=== PATIENT | female | born 1980 | race American Indian/Alaskan Native ===

== ENCOUNTER 2018-05-05 11:53 | Emergency (ER) | payer SELFPAY ==
[2018-05-05] MEDS ORDERED: CARAFATE PO ONE (12:20)
[2018-05-05] MEDS ORDERED: NACL 0.9% 1000 ML 1,000 ML IV ONE (12:20)
[2018-05-05] MEDS ORDERED: CARAFATE ONE (12:20)
[2018-05-05] MEDS ORDERED: PEPCID IV ONE ×2 (12:20)
--- NOTE | 2018-05-05 12:22 | Emergency Department Report ---
ED Chest Pain HPI - General Chief Complaint: Chest Pain Stated Complaint: CHESTPAIN Time Seen by Provider: 05/05/18 12:13 Source: patient, EMS (ems notes not available at time of chart dictation), RN notes reviewed, old records reviewed Mode of arrival: Ambulatory Limitations: No Limitations - History of Present Illness Initial Comments: This is a 37-year-old female who is not known to this provider previously. The patient denies past medical history. The patient reports that she is not , denies oral contraceptive use, and denies DVT, pulmonary embolus risk factors. The patient is reportedly brought to the hospital today by emergency medical services for chest pain. The patient reports the chest pain is central, and radiates up to her throat. She describes it as a sensation of heartburn. She denies vomiting, diaphoresis, denies shortness of breath. She reports no recent aspirin use or cocaine use. The pain is intermittent, and does not have exacerbating or relieving factors that she is aware of. MD Complaint: chest pain -: Gradual, days(s) Onset: during exertion Pain Location: substernal Pain Radiation: other Quality: aching, other Consistency: intermittent Improves With: nothing Worsens With: nothing Aspirin use within the Past 7 Days: (0) No - Related Data On Oral Contraceptives: No Previous Rx's Medication Instructions Recorded Last Taken Type Aspirin [Aspirin BABY CHEW TAB] 81 mg PO QDAY #30 tab.chew 05/05/18 Unknown Rx Famotidine [Pepcid] 20 mg PO BID #30 tablet 05/05/18 Unknown Rx Heart Score - HEART Score History: Slightly suspicious EKG: Normal Age: < 45 Risk factors: No known risk factors Troponin: < normal limit HEART Score: 0 - Critical Actions Critical Actions: 0-3 pts:0.9-1.7%risk of adverse cardiac event.Candidate for discharge ED Review of Systems ROS: Stated complaint: CHESTPAIN Other details as noted in HPI Constitutional: denies: fever Eyes: denies: vision change ENT: denies: epistaxis Respiratory: denies: cough Cardiovascular: chest pain Gastrointestinal: denies: vomiting Musculoskeletal: denies: back pain Skin: denies: lesions Neurological: denies: weakness Psychiatric: anxiety ED Past Medical Hx - Medications Home Medications: Home Medications Medication Instructions Recorded Confirmed Last Taken Type Aspirin [Aspirin BABY CHEW TAB] 81 mg PO QDAY #30 tab.chew 05/05/18 Unknown Rx Famotidine [Pepcid] 20 mg PO BID #30 tablet 05/05/18 Unknown Rx ED Physical Exam - General General appearance: alert, in no apparent distress - Head Head exam: Present: atraumatic, normocephalic - Eye Eye exam: Present: normal appearance, EOMI. Absent: nystagmus - ENT ENT exam: Present: normal exam, normal orophraynx, mucous membranes moist, normal external ear exam - Neck Neck exam: Present: normal inspection, full ROM. Absent: tenderness, meningismus - Respiratory Respiratory exam: Present: normal lung sounds bilaterally. Absent: respiratory distress - Cardiovascular Cardiovascular Exam: Present: regular rate, normal rhythm, normal heart sounds. Absent: bradycardia, tachycardia, irregular rhythm, systolic murmur, diastolic murmur, rubs, gallop - GI/Abdominal GI/Abdominal exam: Present: soft. Absent: distended, tenderness, guarding, rebound, rigid, pulsatile mass - Extremities Exam Extremities exam: Present: normal inspection, full ROM, other (2+ pulses noted in the bilateral upper, lower extremities. Compartments soft. No long bony tenderness. The pelvis is stable.). Absent: pedal edema, joint swelling, calf tenderness - Back Exam Back exam: Present: normal inspection, full ROM. Absent: tenderness, CVA tenderness (R), paraspinal tenderness, vertebral tenderness - Neurological Exam Neurological exam: Present: alert, oriented X3, CN II-XII intact, normal gait, other (Extraocular movements intact. Tongue midline. No facial droop. Facial sensation intact to light touch in the V1, V2, V3 distribution bilaterally. 5 and 5 strength in 4 extremities.. Sensation is intact to light touch in 4 extremities.). Absent: motor sensory deficit - Psychiatric Psychiatric exam: Present: anxious - Skin Skin exam: Present: warm, dry, intact, normal color. Absent: rash ED Course Vital Signs 05/05/18 12:35 Temperature 98.2 F Pulse Rate 96 H Respiratory 18 Rate Blood Pressure 137/97 Blood Pressure 137/97 [Left] O2 Sat by Pulse 100 Oximetry ALYSE score - Alyse Score Age > 65: (0) No Aspirin use within the Past 7 Days: (0) No 3 or more CAD Risk Factors: (0) No 2 or more Angina events in past 24 hrs: (0) No Known CAD with more than 50% Stenosis: (0) No Elevated Cardiac Markers: (0) No ST Deviation Greater than 0.5mm: (0) No ALYSE Score: 0 ED Medical Decision Making - Lab Data Vital Signs 05/05/18 12:35 Temperature 98.2 F Pulse Rate 96 H Respiratory 18 Rate Blood Pressure 137/97 Blood Pressure 137/97 [Left] O2 Sat by Pulse 100 Oximetry - EKG Data -: EKG Interpreted by Pr - EKG Data 05/05/18 12:59 Sinus rhythm, 85 bpm, normal axis, QTC prolonged, motion artifact, not consistent with ST elevation myocardial infarction, otherwise, no significant ST abnormalities - Medical Decision Making Differential diagnosis, including not limited to: GERD, gastritis, hiatal hernia, pneumonia, acute coronary syndrome, pulmonary and was, anxiety Assessment and plan: 37-year-old female who endorses burning chest discomfort that radiates up to her throat, most likely GI related. The patient is afebrile with reassuring vital signs, and reports no pulmonary embolus or DVT risk factors. I recommended screening laboratory studies, x-ray of the chest to exclude potentially dangerous conditions, including acute coronary syndrome, pneumothorax and pulmonary embolus. The patient verbalizes understanding, and initially indicated that she was amenable to initiate a workup. The patient is alert and oriented 3, clinically sober, walks with a steady gait, and exhibits decision-making capacity. The patient is not intoxicated she is not impaired in my professional opinion, and she does exhibit decision- making capacity as she is able to explain things in her own words and a lucid and cogent fashion. This conversation was witnessed by nurse Posey Shortly thereafter, the patient signed out AGAINST MEDICAL ADVICE. The patient left before receiving her discharge paperwork. Please note that for the purposes of chart completion, I have had to document negative troponin in both the heart score, and ALYSE score, although laboratory studies were not drawn. please note that because of the way the medical record system is constructed, this chart cannot be completed or signed without the use values being input. Therefore, I have selected these are arbitrary designations in order to complete the chart. They are not indication of the patient's troponin level, as this level was not able to be drawn secondary to the patient's signing out AGAINST MEDICAL ADVICE. for the Purposes of cardiac risk stratification, both the documented ALYSE score, and heart score in this charts are not applicable, as the screening laboratory studies are not obtained. Critical care attestation.: If time is entered above; I have spent that time in minutes in the direct care of this critically ill patient, excluding procedure time. ED Disposition Clinical Impression: Chest pain Disposition: DC-07 LEFT AGAINST MED ADVICE Is pt being admited?: No Does the pt Need Aspirin: No Condition: Undetermined Instructions: Chest Pain (ED) Additional Instructions: As we discussed, you have left the hospital/emergency room AGAINST MEDICAL ADVICE. By leaving, you risked , disability, paralysis, permanent loss of quality of life. The ER is open 24 hours a day, 7 days a week. It never closes. Please return to the emergency room right away if and when you change your mind. If you decide not to return to the emergency room, please follow-up with the listed physician referrals as soon as possible. Avoid consumption of Motrin, ibuprofen, Naprosyn, Aleve, heavy, spicy foods. Prescriptions: Aspirin [Aspirin BABY CHEW TAB] 81 mg PO QDAY #30 tab.chew Famotidine [Pepcid] 20 mg PO BID #30 tablet Referrals: [facility] [Provider Group] - 3-5 Days [facility] [Provider Group] - 3-5 Days [facility] [Provider Group] - 3-5 Days
[2018-05-05 12:43] VITALS: BP 137/97
== END 2018-05-05 13:11 | disposition left against medical advice (07) ==
LOC: EDSEX → ED 11:53
DX: R07.89 Other chest pain (principal)
CPT/HCPCS: 93005; 93010; 96374

== ENCOUNTER 2019-01-22 14:56 | Emergency (ER) | payer SELFPAY ==
--- NOTE | 2019-01-22 15:11 | Event Note ---
ED Screening Note Date of service: 01/22/19 ED Screening Note: This initial assessment/diagnostic orders/clinical plan/treatment(s) is/are subject to change based on patients health status, clinical progression and re- assessment by fellow clinical providers in the ED. Further treatment and workup at subsequent clinical providers discretion. Patient/guardian urged not to elope from the ED as their condition may be serious if not clinically assessed and managed. Initial orders include: 38yo BF states that she has LBP, more severe on the R flank x 1 week. 2 days ago the pain began to increase with urination and defecation. She further states that she has been nauseous.
[2019-01-22 18:05] LABS: Bilirubin,Urine NEG (Negative); Blood,Urine LG (Negative); Color,Urine Yellow (Yellow); Mucus,Urine FEW /HPF; Protein,Urine <15 mg/dL mg/dL (Negative); Urobilinogen,Urine < 2.0 mg/dL (<2.0)
[2019-01-22 18:08] LABS: RBC,Urine > 182.0 /HPF (0.0-6.0)
[2019-01-22] MEDS ORDERED: SODIUM CHLORIDE 0.9% 1000 ML 2,000 ML IV ONE (18:24)
[2019-01-22] MEDS ORDERED: ONDANSETRON 4 MG/2 ML INJ IV ONE (18:24)
[2019-01-22] MEDS ORDERED: MORPHINE 4 MG/1 ML INJ IV ONE (18:24)
[2019-01-22] MEDS ORDERED: ACETAMINOPHEN 325 MG TAB PO ONE (18:25)
--- NOTE | 2019-01-22 18:26 | Emergency Department Report ---
ED General Adult HPI - General Chief complaint: Back Pain/Injury Stated complaint: BACK/L SIDE PAIN Time Seen by Provider: 01/22/19 18:07 Source: patient, RN notes reviewed, old records reviewed Mode of arrival: Ambulatory Limitations: No Limitations - History of Present Illness Initial comments: During the history and physical examination, I am social science manager and escorted by nurse Roseanne Fiore This is a 38-year-old female. Patient reportedly has a history of hypertension. The patient presents to the ER with a complaint of left flank pain, left side p ain, present for a few days, dysuria times one day, positive nausea, vomiting times one, nonbloody and nonbilious., no headache, no chest pain, no diarrhea. She denies vaginal discharge, indicates that she is sexually active with 1 male partner, denies dyspareunia, and indicates that she is not concerned about STI She also feels like her left /Hip is "more swollen than the other side." Symptoms going on for a few days, increases with palpation and decreases with rest. Location: back, abdomen Radiation: flank Severity scale (0 -10): 9 Quality: other Consistency: other Improves with: other Worsens with: other - Related Data Previous Rx's Medication Instructions Recorded Last Taken Type Aspirin [Aspirin BABY CHEW TAB] 81 mg PO QDAY #30 tab.chew 05/05/18 Unknown Rx Famotidine [Pepcid] 20 mg PO BID #30 tablet 05/05/18 Unknown Rx Acetaminophen [Non-Aspirin Extra 500 mg PO Q6HR PRN #30 tablet 01/22/19 Unknown Rx Strength] Ibuprofen [Motrin] 600 mg PO Q8H PRN #30 tablet 01/22/19 Unknown Rx Magnesium Oxide 400 mg PO QDAY #10 tablet 01/22/19 Unknown Rx Ondansetron [Zofran Odt] 4 mg PO Q8HR PRN #20 tab.rapdis 01/22/19 Unknown Rx Sulfamethoxazole/Trimethoprim 1 each PO BID #8 tablet 01/22/19 Unknown Rx [Bactrim DS TAB] Allergies Allergy/AdvReac Type Severity Reaction Status Date / Time latex Allergy Itching Verified 01/22/19 14:58 ED Review of Systems ROS: Stated complaint: BACK/L SIDE PAIN Other details as noted in HPI Constitutional: denies: fever Eyes: denies: eye discharge ENT: denies: congestion Respiratory: denies: wheezing Cardiovascular: denies: syncope Gastrointestinal: nausea, vomiting Genitourinary: dysuria Musculoskeletal: back pain, myalgia Skin: denies: lesions Neurological: denies: weakness Psychiatric: anxiety Hematological/Lymphatic: denies: easy bleeding ED Past Medical Hx - Past Medical History Previous Medical History?: Yes Hx Hypertension: Yes - Surgical History Past Surgical History?: Yes Additional Surgical History: C section. D and C - Social History Smoking Status: Current Every Day Smoker Substance Use Type: Marijuana - Medications Home Medications: Home Medications Medication Instructions Recorded Confirmed Last Taken Type Aspirin [Aspirin BABY CHEW TAB] 81 mg PO QDAY #30 tab.chew 05/05/18 Unknown Rx Famotidine [Pepcid] 20 mg PO BID #30 tablet 05/05/18 Unknown Rx Acetaminophen [Non-Aspirin Extra 500 mg PO Q6HR PRN #30 tablet 01/22/19 Unknown Rx Strength] Ibuprofen [Motrin] 600 mg PO Q8H PRN #30 tablet 01/22/19 Unknown Rx Magnesium Oxide 400 mg PO QDAY #10 tablet 01/22/19 Unknown Rx Ondansetron [Zofran Odt] 4 mg PO Q8HR PRN #20 tab.rapdis 01/22/19 Unknown Rx Sulfamethoxazole/Trimethoprim 1 each PO BID #8 tablet 01/22/19 Unknown Rx [Bactrim DS TAB] ED Physical Exam - General Limitations: No Limitations General appearance: alert, anxious - Head Head exam: Present: atraumatic, normocephalic - Eye Eye exam: Present: normal appearance, EOMI - ENT ENT exam: Present: normal exam, normal orophraynx, mucous membranes moist, normal external ear exam - Neck Neck exam: Present: normal inspection, full ROM. Absent: tenderness, meningismus - Respiratory Respiratory exam: Present: normal lung sounds bilaterally. Absent: respiratory distress - Cardiovascular Cardiovascular Exam: Present: normal rhythm, tachycardia, normal heart sounds. Absent: systolic murmur, diastolic murmur, rubs, gallop - GI/Abdominal GI/Abdominal exam: Present: soft, tenderness (there is left flank tenderness), normal bowel sounds. Absent: distended, guarding, rebound, rigid, pulsatile mass - Extremities Exam Extremities exam: Present: normal inspection, full ROM, other (2+ pulses noted in the bilateral upper, lower extremities. There is no long bone tenderness. Musculoskeletal compartments are soft. The pelvis is stable.). Absent: pedal edema, joint swelling, calf tenderness - Back Exam Back exam: Present: normal inspection, full ROM, CVA tenderness (L), paraspinal tenderness. Absent: tenderness, CVA tenderness (R) - Neurological Exam Neurological exam: Present: alert, oriented X3, other (there is no facial droop. The tongue is midline. Extraocular movements are intact bilaterally. Patient speaking in full complete sentences. Shoulder shrug is intact bilaterally. Hearing is grossly intact bilaterally. Visual acuity intact to finger counting and color perception at a close distance. 5/5 strength 4 extremities. Sensati on intact to light touch in 4 extremities.). Absent: motor sensory deficit - Psychiatric Psychiatric exam: Present: anxious - Skin Skin exam: Present: warm, dry, intact, normal color. Absent: rash ED Course Vital Signs 01/22/19 01/22/19 01/22/19 15:04 18:37 18:52 Temperature 97.9 F 98.6 F Pulse Rate 108 H 111 H Respiratory 20 16 20 Rate Blood Pressure 123/88 Blood Pressure 130/98 [Right] O2 Sat by Pulse 99 99 Oximetry 01/22/19 01/22/19 18:53 22:15 Temperature Pulse Rate 98 H Respiratory 20 18 Rate Blood Pressure Blood Pressure 134/100 [Right] O2 Sat by Pulse 100 Oximetry - Reevaluation(s) Reevaluation #1: 01/22/19 19:13 Differential diagnosis, including not limited to: Ovarian cyst, reproducible muscular back pain, upper urinary tract infection, kidney stone, colitis, diverticulitis Assessment and plan: 38-year-old female who is tachycardic, endorsing back pain, flank pain, dysuria 1 day. Somewhat tender. Appears quite anxious. We will treat her symptoms, obtain additional laboratory studies, obtain CT scan abdomen pelvis, and reassess. Discussed plan of care with patient who verbalizes understanding, and who is amenable to this plan of care. During the entire history and physical examination, I am chaperoned by nurse Rosaenne Fiore. Reevaluation #2: 01/22/19 23:21 Tachycardia resolved. Patient noted to be smiling and laughing and quite engaged with the ER staff members. She is making multiple requests to eat and leave. CT scan abdomen pelvis shows no acute surgical process. Left-sided ovarian cyst is suggested's, possibly hemorrhagic. Urinalysis is reviewed and appreciated. Patient will be treated empirically with Bactrim, and Tylenol, Motrin, as needed for pain. She can follow-up with her outpatient primary care doctor or regional vice president life sales. Potassium and magnesium were repleted in the emergency room. Patient suitable for discharge at this point time. There is no left lower quadrant abdominal tenderness, rebound or guarding. The patient appears to be quite comfortable at this time. Based off of this, history, physical, radiology studies, ovarian torsion is very unlikely. ED Medical Decision Making - Lab Data Result diagrams: 01/22/19 20:25 01/22/19 20:25 Vital Signs 01/22/19 01/22/19 01/22/19 15:04 18:37 18:52 Temperature 97.9 F 98.6 F Pulse Rate 108 H 111 H Respiratory 20 16 20 Rate Blood Pressure 123/88 Blood Pressure 130/98 [Right] O2 Sat by Pulse 99 99 Oximetry 01/22/19 18:53 Temperature Pulse Rate Respiratory 20 Rate Blood Pressure Blood Pressure [Right] O2 Sat by Pulse Oximetry Lab Results 01/22/19 Range/Units 17:48 Urine Color Yellow (Yellow) Urine Turbidity Clear (Clear) Urine pH 7.0 (5.0-7.0) Ur Specific [place] 1.006 (1.003-1.030) Urine Protein <15 mg/dl (Negative) mg/dL Urine Glucose (UA) Neg (Negative) mg/dL Urine Ketones Neg (Negative) mg/dL Urine Blood Lg (Negative) Urine Nitrite Neg (Negative) Urine Bilirubin Neg (Negative) Urine Urobilinogen < 2.0 (<2.0) mg/dL Ur Leukocyte Esterase Neg (Negative) Urine WBC (Auto) 34.0 H (0.0-6.0) /HPF Urine RBC (Auto) > 182.0 (0.0-6.0) /HPF U Epithel Cells (Auto) 4.0 (0-13.0) /HPF Urine Mucus Few /HPF - Radiology Data Radiology results: report reviewed, image reviewed Print Report Referring Physician: LAURA BELLA Patient Name: ADALID IRELAND Date of : 1980 Sex: Female Report Date: 2019-01-22 Report Status: Finalized Findings [facility] [address] [place] [address] Cat Scan Report Signed Patient: ADALID IRELAND MR#: [id number] : 1980 Acct:[id number] Age/Sex: 38 / F ADM Date: 01/22/19 Loc: ED Attending Dr: Ordering Physician: LAURA BELLA MD Date of Service: 01/22/19 Procedure(s): CT abdomen pelvis w con Accession Number(s): [id number] cc: LAURA BELLA MD CT ABDOMEN AND PELVIS WITH IV CONTRAST INDICATION: left flank pain n/v back pain. COMPARISON: None available. TECHNIQUE: Axial CT images were obtained through the abdomen and pelvis after 100 mL IV contrast. All CT scans at this location are performed using CT dose reduction for ALARA by means of automated exposure control. FINDINGS -- ABDOMEN: Lung Bases: No acute abnormality. Liver: Fatty liver.. Gallbladder: Normal. Bile Ducts: Normal. Pancreas: Normal. Spleen: Normal. Adrenals: Normal. Right Kidney and Proximal Ureter: Normal. Left Kidney and Proximal Ureter: Normal. Stomach and Bowel: Normal. Lymph Nodes: No significant adenopathy. Aorta: No significant abnormality. IVC: Normal. Additional Findings: None. FINDINGS -- PELVIS: Urinary Bladder and Distal Ureters: Normal. Reproductive Organs: 1.5 x 0.8 cm mildly complex cyst arising from the left ovary.. Appendix: Normal. Bowel: No acute abnormality. Free Fluid: None. Lymph Nodes: No significant adenopathy. Additional Findings: None. Skeletal System: No acute abnormality. IMPRESSION: 1. Mildly complex 1.5 cm cyst arising from the left ovary likely represents a hemorrhagic cyst 2. Fatty liver. Signer Name: Augustine Carter MD Signed: 01/22/2019 11:11 PM Workstation Name: [id number] Transcribed By: BC Dictated By: Augustine Carter MD Electronically Authenticated By: Augustine Carter MD Signed Date/Time: 01/22/192310 DD/ 08 Critical care attestation.: If time is entered above; I have spent that time in minutes in the direct care of this critically ill patient, excluding procedure time. ED Disposition Clinical Impression: Ovarian cyst, Dysuria, Hypomagnesemia, Hypokalemia Disposition: DC- TO HOME OR SELFCARE Is pt being admited?: No Does the pt Need Aspirin: No Condition: Stable Additional Instructions: Take the pain medication as needed, nausea medication as directed, magnesium supplementation as directed, antibiotics as directed. Follow-up with the primary care doctor or regional vice president life sales within the next 7-10 days. Drink 4-5 cups of water per day for the next week. Do not take metformin medication, if patient takes his medication. Return to the emergency room right away with new, worsened or different symptoms, or symptoms not present on the initial emergency room evaluation. Referrals: [facility] [Provider Group] - 3-5 Days [facility] [Provider Group] - 3-5 Days
[2019-01-22 21:00] LABS: Hematocrit 32.9 % (30.3-42.9); Hemoglobin 10.8 gm/dl (10.1-14.3); Mean Corpuscular HGB Conc 33 % (30-34); Mean Corpuscular Volume 94 fl (79-97); Platelet Count 169 K/mm3 (140-440); Red Blood Count 3.52 M/mm3 (3.65-5.03)
[2019-01-22 21:04] LABS: HCG Qualitative,Urine Negative (Negative)
[2019-01-22 21:19] LABS: Alanine Aminotransferase 16 units/L (7-56); Albumin 4.4 g/dL (3.9-5); BUN/Creatinine Ratio 20; Blood Urea Nitrogen 6 mg/dL (7-17); Calcium 9.2 mg/dL (8.4-10.2); Hemolysis Index 9
[2019-01-22] MEDS ORDERED: POTASSIUM CHLORIDE ER 20 MEQ TAB PO ONE (22:01)
[2019-01-22] MEDS ORDERED: MAGNESIUM OXIDE 400 MG TAB PO ONE (22:31)
[2019-01-22 23:07] VITALS: BP 134/100
--- NOTE | 2019-01-22 23:15 | Cat Scan Report ---
CT ABDOMEN AND PELVIS WITH IV CONTRAST INDICATION: left flank pain n/v back pain. COMPARISON: None available. TECHNIQUE: Axial CT images were obtained through the abdomen and pelvis after 100 mL IV contrast. All CT scans a t this location are performed using CT dose reduction for ALARA by means of automated exposure contro l. FINDINGS -- ABDOMEN: Lung Bases: No acute abnormality. Liver: Fatty liver.. Gallbladder: Normal. Bile Ducts: Normal. Pancreas: Normal. Spleen: Normal. Adrenals: Normal. Right Kidney and Proximal Ureter: Normal. Left Kidney and Proximal Ureter: Normal. Stomach and Bowel: Normal. Lymph Nodes: No significant adenopathy. Aorta: No significant abnormality. IVC: Normal. Additional Findings: None. FINDINGS -- PELVIS: Urinary Bladder and Distal Ureters: Normal. Reproductive Organs: 1.5 x 0.8 cm mildly complex cyst arising from the left ovary.. Appendix: Normal. Bowel: No acute abnormality. Free Fluid: None. Lymph Nodes: No significant adenopathy. Additional Findings: None. Skeletal System: No acute abnormality. IMPRESSION: 1. Mildly complex 1.5 cm cyst arising from the left ovary likely represents a hemorrhagic cyst 2. Fatty liver. Signer Name: Augustine Carter MD Signed: 01/22/2019 11:11 PM Workstation Name: [id number][id number]
== END 2019-01-22 23:35 | disposition home or self-care (01) ==
LOC: ED 14:56
DX: N83.202 Unspecified ovarian cyst, left side (principal); E83.42 Hypomagnesemia; E87.6 Hypokalemia; I10 Essential (primary) hypertension; F17.200 Nicotine dependence, unspecified, uncomplicated; F12.10 Cannabis abuse, uncomplicated; Z91.040 Latex allergy status
CPT/HCPCS: 36415; 74177; 80053; 81001; 81025; 82550; 83735; 85027; 87086; 96361; 96374; 96375; 99284; J2270; J2405; J7030; Q9967